=== PATIENT | male | born 1935 | race Caucasian/White ===

== ENCOUNTER → 2018-11-22 | Day surgery (SDC) | payer MEDICARE, OTHER ==
[~2018-11-22] VITALS: Ht 172.7 cm; Wt 73.0 kg
[~2018-11-22] MED LIST: ATORVASTATIN CA20 MG PO; B-121000 MC1 PO; DIGOXIN125 MCG PO; FLUTICASON50 MCG/ACT; GABAPENTIN100 MG PO; METFORMIN500 M1 PO; PERCOCET 10/31 COMBO PO; POT CHLORIDE10 ME1 PO; SERTRALINE HYDR50 MG PO; SG ASA LOW81 M1 PO; TOPROL XL50 MG PO; XARELTO15 MG PO
[2018-11-22 15:06] VITALS: BP 115/56
== END | disposition home health service (06) ==
LOC: ORM 10:00
PROVIDERS: ATTEND Urology
PROC: 0T9B00Z Drainage of Bladder with Drainage Device, Open Approach (ICD-10-PCS; principal; 2018-11-22)
DX: N31.9 Neuromuscular dysfunction of bladder, unspecified (principal); N40.1 Benign prostatic hyperplasia with lower urinary tract symptoms; R33.8 Other retention of urine; F03.90 Unspecified dementia, unspecified severity, without behavioral disturbance, psychotic disturbance, mood disturbance, and anxiety; I11.0 Hypertensive heart disease with heart failure; I50.9 Heart failure, unspecified; E11.9 Type 2 diabetes mellitus without complications; I69.954 Hemiplegia and hemiparesis following unspecified cerebrovascular disease affecting left non-dominant side; I25.10 Atherosclerotic heart disease of native coronary artery without angina pectoris; I48.91 Unspecified atrial fibrillation; J44.9 Chronic obstructive pulmonary disease, unspecified; Z79.01 Long term (current) use of anticoagulants; Z87.891 Personal history of nicotine dependence
CPT/HCPCS: J1956; J2710